=== PATIENT | female | born 1995 | race Caucasian/White ===

== ENCOUNTER 2025-02-24 12:27 | Emergency (ER) | payer SELFPAY ==
[2025-02-24 12:30] VITALS: BP 144/90; PULSE 91; RESP 18; TEMP 37; O2SAT 98; BMI 37.8
--- NOTE | 2025-02-24 12:32 | ECG_ITS ---
APPROVED REPORT Exam: Resting ECG HR:84 bpm ECG Measurements Heart Rate 84 AXES VT 155 P 57 QRSd 80 QRS 58 QT 377 T 39 QTc 418 Conclusion SINUS RHYTHM NORMAL ECG UNCONFIRMED REPORT Electronically signed by : Hira Gillette, 02/24/2025 15:38:08
--- NOTE | 2025-02-24 12:39 | XR_ITS ---
FINAL REPORT CLINICAL HISTORY: productive cough COMPARISON: None FINDINGS: The heart size is normal. The mediastinum is normal. There is no focal infiltrate or edema. There are no pleural effusions. There is no pneumothorax. There is no osseous abnormality. IMPRESSION: No acute cardiopulmonary process Reviewed, Interpreted and Dictated by Say Vang MD Transcribed by Jessika Wasserman Authenticated and [facility]
--- NOTE | 2025-02-24 12:42 | HMH.EDGENADL ---
Discharge Plan Disposition Patient Disposition: Home, Self-Care Prescriptions Prescriptions: New albuterol sulfate 90 mcg/actuation HFA aerosol inhaler 4 inh inhalation Q4H PRN (Reason: shortness of breath or wheezing) Qty: 8.5 0RF Rx Instructions: 4 puffs every 4 hours for 48 hours then as needed for shortness of breath or wheezing following bbgpcpdjdqjxtew-zcmachozb-OA 2-30-10 mg/5 mL syrup 5 ml PO Q6H PRN (Reason: cold symptoms) 7 Days Qty: 118 0RF Activity Restrictions/Add. Instructions Additional Instructions/Restrictions: Symptoms today were consistent with asthma exacerbation likely superimposed upon a viral upper respiratory infection. No evidence of an acute bacterial infection such as pneumonia etc. Please take your medications as prescribed. Return to the emergency room with any significant worsening of your symptoms. 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 I highly recommend you stop smoking as discussed. Clinical Impressions Clinical Impression: Asthma with exacerbation, Encounter for smoking cessation counseling, Chest wall muscle strain Print Language Print Language: Estonian Discharge ED Provider: Samir Gillette General Adult HPI General Chief complaint: Shortness of Breath/Dyspnea Stated complaint: SOA Time Seen by Provider: 02/24/25 12:31 Mode of Arrival: EMS Source of Information: Patient Description of Symptoms (Recalled from ER Triage Doc. by RN): pt to the ED with SOB, a tight cough with sputum production x 2 days. History of Present Illness HPI narrative: Patient is a 30-year-old female brought in today for shortness of breath. She came in by EMS. She has a history of asthma states that for the last several days she has felt sick with a cough and has had bronchitis before but states that this time she is having more difficult time breathing. EMS gave her 2 DuoNeb's and Solu-Medrol with significant improvement in her symptoms but she still is having some discomfort. Additionally patient has some chest discomfort with coughing or deep inspiration. Denies any objective fever but has woken up in the morning with sweats presumptively having had a fever she states. No leg swelling no hemoptysis no history of DVT PE etc. Related Data Previous Rx's ?Medication ?Instructions ?Recorded albuterol sulfate 90 mcg/actuation 4 inh inhalation Q4H PRN shortness 02/24/25 aerosol inhaler of breath or wheezing #8.5 grams dxkpswmywqasymz-bnasxxsfbtwbxzd-TP 5 ml PO Q6H PRN cold symptoms 7 02/24/25 2 mg-30 mg-10 mg/5 mL oral syrup days #118 mL Allergies Allergy/AdvReac Type Severity Reaction Status Date / Time No Known Allergies Allergy Verified 02/24/25 12:38 [facility] Disclaimer: The information contained in this section may have been updated after the patient was seen, as this information can be updated by other users. Social History Smoking Status: Current every day smoker alcohol intake: never current occupational status: other Travel in the last 8 weeks?: None ROS Obtained: Yes All systems reviewed & no additional complaints except as documented Physical Exam General General appearance: alert Respiratory Respiratory exam: Present normal lung sounds bilaterally; Absent respiratory distress Cardiovascular Cardiovascular exam: Present regular rate and normal rhythm Neurological Exam Neurological exam: Present alert and oriented X3 Medical Decision Making Medical Records Screening: Per USPSTF and CDC recommendations, given the prevalence of disease in our region, it is our hospital?s policy to screen for HIV and viral Hepatitis for all patients aged 18 and over and those with ongoing risk factors. Kar Inquiry Pt receiving controlled substance: No Vital Signs: 02/24/25 12:30 02/24/25 13:00 Temperature 98.6 F Temperature Source Oral Pulse Rate 89 Pulse Rate [Left Radial] 91 H Respiratory Rate 18 17 Blood Pressure 134/72 Blood Pressure [Right Arm] 144/90 H Blood Pressure Mean [Right Arm] 108 Blood Pressure Source [Right Arm] Automatic Cuff Blood Pressure Position [Right Arm] Sitting 02 Sat by Pulse Oximetry 98 97 Oxygen Delivery Method Room Air Room Air Lab Data Lab results reviewed: Yes I reviewed the patient's lab results. Lab Results 02/24/25 12:29: WBC 11.0 H, RBC 4.89, Hgb 12.9, Hct 40.5, MCV 82.8, MCH 26.4 L, MCHC 31.9, RDW 15.9, Plt Count 256, MPV 9.5, Neut % (Auto) 68.7, Lymph % (Auto) 18.1, [place] % (Auto) 7.0, Eos % (Auto) 5.2, Baso % (Auto) 0.6, Neut # (Auto) 7.6, Lymph # (Auto) 2.0, [place] # (Auto) 0.8, Eos # (Auto) 0.6 H, Baso # (Auto) 0.1, Sodium 139, Potassium 3.9, Chloride 109 H, Carbon Dioxide 20 L, Anion Gap 13.9, BUN 8, Creatinine 0.70, Estimated Creat Clear 167, Estimated GFR 98, Est GFR ( Amer) 118, Glucose 109 H, Calcium 8.9, Total Bilirubin 0.9, AST 28, ALT 23, Alkaline Phosphatase 91, Troponin I < 0.01, NT-Pro-B Natriuret Pep 162 H, Total Protein 7.7, Albumin 4.5, Globulin 3.2, Albumin/Globulin Ratio 1.4 02/24/25 12:53: SARS-CoV-2 (PCR) Not detected, Influenza A Untype (PCR) Not detected, Influenza Type B (PCR) Not detected 02/24/25 12:29 02/24/25 12:29 Orders (Tests/Meds): ED MEDICATIONS Discontinued Medications Generic Name Dose Route Start Last Admin Trade Name Freq PRN Reason Stop Dose Admin Dexamethasone Sodium Phosphate 10 mg 02/24/25 12:39 02/24/25 12:45 Dexamethasone 4mg/Ml 1ml Vial IV 02/24/25 12:40 10 mg ONCE ONE Administration Lactated Ringer's 1,000 mls @ 999 mls/hr 02/24/25 12:45 02/24/25 12:45 Lactated Ringer's 1000 Ml Bag IV 02/24/25 13:45 999 mls/hr .Q1H1M LINDA Administration Magnesium Sulfate 2 gm in 50 mls @ 50 mls/hr 02/24/25 12:39 02/24/25 12:45 Magnesium Sulfate 2gm/50ml Premix IV 02/24/25 13:38 50 mls/hr ONCE ONE Administration Ketorolac Tromethamine 15 mg 02/24/25 14:16 02/24/25 14:20 Ketorolac 30mg/Ml Vial IV 02/24/25 14:17 15 mg ONCE ONE Administration ORDERS Category Date Time Status CXR --portable [XR chest portable] Stat Exams 02/24/25 12:39 Completed BNP [NT Pro Brain Natriuretic Pep.] Stat Lab 02/24/25 12:29 Completed CBC w/Auto Diff [Complete Blood Count Auto Diff] Stat Lab 02/24/25 12:29 Completed CMP [Comprehensive Metabolic Panel] Stat Lab 02/24/25 12:29 Completed Rapid PCR Covid and Flu A/B Stat Lab 02/24/25 12:53 Completed Trop I [Troponin I] Stat Lab 02/24/25 12:29 Completed Troponin I Q3H Lab 02/24/25 15:45 Ordered Troponin I Q3H Lab 02/24/25 18:45 Ordered ECG Data Tracing #1: I reviewed this ECG and interpreted as documented below: Ventricular rate of 84 normal sinus rhythm no acute ischemic changes noted no significant conduction abnormalities. Medical Decision Narrative: Well-appearing 30-year-old female with symptoms consistent with an asthma exacerbation. She does have some chest discomfort differential also includes myocarditis very unlikely to be acute coronary syndrome. Will get a single troponin. Her chest discomfort is worsened with any type of movement such as cough or deep inspiration. She is PERC negative will not workup further pulmonary embolism. She has infectious symptoms. Will get COVID and flu. She is more than 48 hours out of symptoms and would not be a candidate for antiviral therapy but this will help with a diagnosis. Also obtain a chest x-ray to rule out any type of cardiopulmonary emergency such as pneumonia. Given the fact that she still is having symptoms we will give her some IV fluids Toradol magnesium dexamethasone and reassess. Reassessment 2:29 PM chest x-ray performed I personally interpreted which shows no acute cardiopulmonary process. Labs unremarkable. Reassessment patient feeling much better symptomatic medication sent to her pharmacy return precautions emphasized and follow-up instructions discussed. Patient discharged in improved stable condition. Critical Care Critical Care Time Critical Care Time: Yes Attestation: On 02/24/25, the high probability of a clinically significant, sudden or life threatening deterioration of the following system(s) required my full and direct attention, intervention and personal management. The time I documented below is in addition to time spent performing reported procedures but includes the following listed in this critical care notation. Total Time Total Critical Care Time: 35
[2025-02-24 12:44] LABS: Basophils # 0.1 K/mm3 (0-0.2); Basophils % 0.6 % (0.1-2.0); Eosinophils # 0.6 Kmm3 (0.0-0.4); Eosinophils % 5.2 % (0.1-12.0); Hematocrit 40.5 % (37.0-47.0); Hemoglobin 12.9 g/dL (12.2-16.2); Immature Granulocytes # 0.04 10^3uL; Immature Granulocytes % 0.4 %; Lymphocytes % 18.1 % (10-50); Mean Corpuscular HGB Conc 31.9 g/dL (31.8-35.4); Mean Corpuscular Hemoglobin 26.4 pg (27.0-31.2); Mean Corpuscular Volume 82.8 fl (81-99); Mean Platelet Volume 9.5 fl (7.4-10.4); Monocytes # 0.8 K/mm3 (0.1-1.0); Neutrophils # 7.6 K/mm3 (1.8-7.8); Neutrophils % 68.7 % (37.0-80.0); Nucleated Red Blood Cells # 0 10^3/uL; Nucleated Red Blood Cells % 0 %; Platelet Count 256 K/mm3 (142-424); Red Blood Count 4.89 M/mm3 (4.20-5.40); Red Cell Distribution Width 15.9 % (11.5-17.5); Red Cell Distribution Width-SD 47.4 fL
[2025-02-24] MEDS: LACTATED RINGERS 1000ML 1,000 ML 999 ML IV (12:45)
[2025-02-24] MEDS: DEXAMETHASONE 4MG/ML 1ML VIAL 10 MG IV (12:45)
[2025-02-24] MEDS: MAGNESIUM SULFATE IN WATER 2 GM/50 ML PIGGYBACK IV (12:45)
--- NOTE | 2025-02-24 12:46 | PC.NURSE ---
Rad at bedside for xray at this time
[2025-02-24 12:47] LABS: Albumin Level 4.5 g/dl (3.5-5.0); Chloride 109 mmol/L (98-107)
[2025-02-24 12:48] LABS: Potassium 3.9 mmoL/L (3.5-5.1); Sodium 139 mmol/L (136-145)
[2025-02-24 12:50] LABS: Blood Urea Nitrogen 8 mg/dl (7-17); Creatinine Clearance Estimated 167 mL/min (50-200); Estimated Glomerular Filt Rate 98 ml/min (>60); GFR (African American) 118 ML/MIN (>60)
[2025-02-24 12:51] LABS: Alanine Aminotransferase 23 U/L (12-78); Albumin/Globulin Ratio 1.4 (1.1-1.8); Alkaline Phosphatase 91 U/L (38-126); Anion Gap 13.9 mEq/L (5-15); Aspartate Amino Transferase 28 U/L (14-36); Bilirubin,Total 0.9 mg/dl (0.2-1.3); Calcium 8.9 mg/dl (8.4-10.2); Carbon Dioxide 20 mmol/L (22.0-30.0); Globulin 3.2 g/dL (1.3-3.2); Glucose 109 mg/dl (74-100); Total Protein,Serum 7.7 g/dl (6.3-8.2)
[2025-02-24 12:56] LABS: Coronavirus 19, PCR Not Detected (NotDetected); Influenza A, PCR Not Detected (NotDetected); Influenza B, PCR Not Detected (NotDetected)
[2025-02-24 13:00] VITALS: BP 134/72; PULSE 89; RESP 17; O2SAT 97
[2025-02-24 13:00] LABS: NT Pro Brain Natriuretic Pep. 162 pg/mL (0-125)
[2025-02-24 13:05] LABS: Troponin I < 0.01 ng/ml (0.00-0.034)
[2025-02-24 13:30] VITALS: BP 142/96; PULSE 89; RESP 29; O2SAT 90
--- OUTSIDE RECORDS SUMMARY | 2025-02-24 13:43 | XMS_ITS | Clinical Summary ---
Author Organization [employer] [facility] Address [address] [place] [phone] Phone Care Team Providers Care Proposal Engineer Name Role Phone Unavailable Unavailable Conditions or Problems No information available. Medications No information available. Medications Administered No information available. Allergies, Adverse Reactions, Alerts No information available. Results No information available. Plan of Care No information available. Procedures No information available. Vital Signs No information available. Immunizations No information available. Advance Directives No information available.
[2025-02-24 14:00] VITALS: BP 143/93; PULSE 86; RESP 31; O2SAT 89
[2025-02-24] MEDS: KETOROLAC 30MG/ML VIAL 15 MG IV (14:20)
[2025-02-24 14:35] VITALS: BP 143/93; PULSE 90; RESP 20; TEMP 37.1; O2SAT 98
--- NOTE | 2025-02-25 08:28 | PC.NURSE ---
Got in patients chart to fax EMS a face sheet.
== END 2025-02-24 14:38 | disposition home or self-care (01) ==
PROVIDERS: Emergency Provider Student in an Organized Health Care Education/Training Program
DX: J45.901 Unspecified asthma with (acute) exacerbation (principal); S29.011A Strain of muscle and tendon of front wall of thorax, initial encounter; F17.210 Nicotine dependence, cigarettes, uncomplicated; X58.XXXA Exposure to other specified factors, initial encounter
CPT/HCPCS: 71045; 80053; 83880; 84484; 85025; 87636; 93005; 96365; 96375; 99284; J1100; J1885; J3475; J7120